=== PATIENT | male | born 1970 | race American Indian/Alaskan Native ===

== ENCOUNTER 2017-05-15 11:06 | Emergency (ER) | payer SELFPAY ==
[2017-05-15] MEDS ORDERED: MOTRIN PO ONE (16:04)
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
--- NOTE | 2017-05-15 17:18 | XRay Report ---
FINAL REPORT EXAM: XR KNEE 3V LT HISTORY: knee pain TECHNIQUE: Left knee three views PRIORS: None. FINDINGS: No fracture is identified. No dislocation seen. No evidence of joint effusion. Patella demonstrates normal positioning. No acute bony abnormality identified. IMPRESSION: Negative knee series
[2017-05-15 17:52] VITALS: BP 140/88
== END 2017-05-15 17:57 | disposition home or self-care (01) ==
LOC: ED 11:06
DX: S86.912A Strain of unspecified muscle(s) and tendon(s) at lower leg level, left leg, initial encounter (principal); S16.1XXA Strain of muscle, fascia and tendon at neck level, initial encounter; I10 Essential (primary) hypertension; V58.0XXA Driver of pick-up truck or van injured in noncollision transport accident in nontraffic accident, initial encounter; Y92.488 Other paved roadways as the place of occurrence of the external cause; Y93.89 Activity, other specified; Y99.9 Unspecified external cause status